=== PATIENT | female | born 1955 | race Caucasian/White ===

== ENCOUNTER → 2017-01-23 | Outpatient (CLI) | payer BC ==
[~2017-01-23] MED LIST: EPIN0.3P2 IM; ESTR0.9T; MULT-608
--- NOTE | 2017-01-23 13:51 | Diagnostic Imaging Report ---
Bilateral screening mammogram. The current study was also evaluated with a Computer Aided Detection (CAD) system. INDICATION: Screening. No current complaints stated on the questionnaire. COMPARISON: 01/21/2016. FINDINGS: The breasts are composed of scattered fibroglandular densities. There are scattered benign-appearing calcifications. Allowing for technique and positional differences, no suspicious change is seen. IMPRESSION: No significant change. ACR BI-RADS Category 2: Benign findings. Result letter will be mailed to the patient. Note: At least 10% of breast cancer is not imaged by mammography. Dictated by: Dictated on workstation # [id number]
== END ==
LOC: RAD 07:20
PROVIDERS: ATTEND Nurse Practitioner
DX: Z12.31 Encounter for screening mammogram for malignant neoplasm of breast (principal)
CPT/HCPCS: 77067

== ENCOUNTER → 2018-04-04 | Outpatient (CLI) | payer OTHER ==
--- NOTE | 2018-04-04 18:21 | Diagnostic Imaging Report ---
EXAM: CERVICAL SPINE 3 VIEWS OR LESS INDICATION: Neck pain. COMPARISON: None. FINDINGS: Moderate to advanced degenerative endplate changes are greatest at C5-C7. Moderate facet arthropathy at the same levels. Normal alignment. Normal prevertebral soft tissues. Vertebral body heights preserved. No fractures. IMPRESSION: Moderate spondylotic changes in the cervical spine. No acute radiographic findings. Dictated by: Dictated on workstation # [id number]
== END ==
LOC: RAD 17:27
PROVIDERS: ATTEND Internal Medicine
DX: M47.812 Spondylosis without myelopathy or radiculopathy, cervical region (principal)
CPT/HCPCS: 72040

== ENCOUNTER → 2018-04-30 | Outpatient (CLI) | payer OTHER ==
--- NOTE | 2018-04-30 12:01 | Diagnostic Imaging Report ---
PROCEDURE: MR imaging cervical spine without contrast. TECHNIQUE: Multiplanar, multisequence MR imaging of the cervical spine was performed without contrast. INDICATION: Neck stiffness and pain in one year's duration. While I have no previous for direct comparison, the study is interpreted in correlation with plain film series performed 04/04/2018. FINDINGS: The vertebral body heights and their alignment are stable and within normal limits. The cervical spinal cord has an unremarkable volume, morphology and signal intensity. There is no marrow edema. No fracture or malalignment. No paravertebral mass, hemorrhage or fluid collection is found. The craniocervical relationship had an unremarkable appearance. The C1-C2 and C2-C3 levels appeared normal. C3-C4: There is disc desiccation, disc bulge and endplate osteophytes. There is preservation of CSF around the cord at this level without a substantial degree of canal stenosis. There is a mild degree of biforaminal narrowing with facet arthrosis and uncovertebral joint spurring. C4-C5: Bulging disc material indents the ventral thecal sac without a substantial degree of canal stenosis and the neuroforamen appeared widely patent bilaterally. C5-C6: Disc desiccation and loss of disc stature with bulging disc material and endplate osteophytes are present. The posterior disease indents the ventral thecal sac with a mild to moderate degree of canal stenosis. There is moderate biforaminal narrowing owing to osteophyte disc material. C6-C7: Osteophyte disc material is anterior greater than posterior but does result in mild canal and mild to moderate left foraminal narrowing. The C7-T1 level appeared normal. 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 Normal cord. No acute bony abnormality. No malalignment. Dictated by: Dictated on workstation # [id number]
== END ==
LOC: RAD 07:05
PROVIDERS: ATTEND Internal Medicine
DX: M48.02 Spinal stenosis, cervical region (principal); M99.71 Connective tissue and disc stenosis of intervertebral foramina of cervical region; M25.78 Osteophyte, vertebrae; M47.812 Spondylosis without myelopathy or radiculopathy, cervical region; M50.21 Other cervical disc displacement, high cervical region; M46.92 Unspecified inflammatory spondylopathy, cervical region
CPT/HCPCS: 72141

== ENCOUNTER → 2019-01-30 | Outpatient (CLI) | payer BC ==
--- NOTE | 2019-01-30 09:36 | Diagnostic Imaging Report ---
INDICATION: Screening The current study was also evaluated with a Computer Aided Detection (CAD) system. 3-D Tomographic imaging was also performed. Comparison made with prior examination from 01/25/2018, 01/23/2017 and 01/21/2016. FINDINGS: There are scattered fibroglandular densities bilaterally. There are few benign type calcifications. There is no dominant mass, spiculated lesion or suspicious calcification identified. Skin, nipples and axilla are unremarkable. IMPRESSION: Category 2 benign. ACR BI-RADS Category 2: Benign findings. Result letter will be mailed to the patient. Note: At least 10% of breast cancer is not imaged by mammography. Dictated by: Dictated on workstation # [id number]
== END ==
LOC: RAD 07:26
PROVIDERS: ATTEND Nurse Practitioner
DX: Z12.31 Encounter for screening mammogram for malignant neoplasm of breast (principal)
CPT/HCPCS: 77067

== ENCOUNTER 2019-02-14 06:50 | Emergency (ER) | payer BC | END 2019-02-14 07:56 | disposition home or self-care (01) | LOC: ER 06:50 ==

== ENCOUNTER → 2020-02-07 | Outpatient (CLI) | payer BC ==
[~2020-02-07] MED LIST changes: +EPIN0.3P3 IJ
--- NOTE | 2020-02-07 09:00 | Diagnostic Imaging Report ---
Indication: Routine screening. Comparison is made with prior exam from 01/30/2019 and 01/25/2018. 2-D and 3-D bilateral screening mammography was performed with CAD. Both breasts remain heterogeneously dense, limiting the sensitivity of mammography. The fibronodular parenchymal pattern appears stable. No dominant mass or malignant appearing microcalcifications are seen. Axillae are unremarkable. IMPRESSION: BI-RADS Category 2. No mammographic features suspicious for malignancy are identified. ACR BI-RADS Category 2: Benign findings. Result letter will be mailed to the patient. Note: At least 10% of breast cancer is not imaged by mammography. Dictated by: Dictated on workstation # [id number]
== END ==
LOC: RAD 07:10
PROVIDERS: ATTEND Surgery
DX: Z12.31 Encounter for screening mammogram for malignant neoplasm of breast (principal)
CPT/HCPCS: 77063; 77067